=== PATIENT | female | born 1980 | race Caucasian/White ===

== ENCOUNTER 2025-10-06 07:12 | Emergency (ER) | payer MEDICAID, SELFPAY ==
--- OUTSIDE RECORDS SUMMARY | 2025-07-08 09:45 | XMS_ITS ---
Author Organization [facility] Address [address] [place] [address] Care Team Providers Care Carpenter Supervisor Name Role Phone Cristy Tellez Unavailable [phone] REASON FOR VISIT PrEP F/U Social History Sex Assigned At : Social History Observation Description Sex Assigned At Male Encounters Encounter Location Date Provider Diagnosis [facility] [address] [place], [place] [phone] 07/08/2025 Cristy Tellez Plan Of Treatment No Information Progress Notes * Flavio BAXTERDOB: [birth year] (45 yo M)Acc No.[id number]:07/08/2025 Progress Notes Patient: Flavio Ramos Provider: Lora Tellez CNM :1980 A ge:45 Y S ex:Male(T) Date:07/08/2025 Address: [address], [id number] Subjective: * Chief Complaints: * P rEP F/U * Electronic signature of Sylvie Tellez CNM on 10/06/2025 at 08:42 AM EST Sign off status: Pending * Provider: Lora Tellez CNM Date: 0 07/08/2025 Generated for Printi ng/Faxing/eTransmitting on: 1 12/06/2024 08:42 AM EST
[2025-10-06 07:18] VITALS: BP 140/87; PULSE 93; RESP 18; TEMP 36.6; O2SAT 100; BMI 25.6
--- NOTE | 2025-10-06 08:17 | PC.NURSE ---
spoke with this patient about getting changed over in the green attire, pt is here mostly for detox from meth is calm, denies si/hi. pt is stating that she does not want to stay in the ED that she already had a placement for detox but her truck broke down on the way over so she came to [facility] instead. Dr Powell is also speaking with the pt-still is continuing on not wanting to come to a room at this time, pt still is continuing to denies si/hi
--- NOTE | 2025-10-06 08:19 | ED_ITS ---
HPI - Psych General Chief Complaint: ETOH/Substance Use Stated Complaint: detox Time Seen by Provider: 10/06/25 08:18 Source: patient and old records reviewed Mode of arrival: ambulatory Limitations: no limitations History of Present Illness ED Provider: JAYLEEN HPI Narrative: 45-year-old female who presents with wanting detox from methamphetamine abuse. She denies SI HI she notes she is using 2-3 she is very depressed. I did attempt with the charge nurse to try to get her to come in so we could assist her but she repeatedly states she is trying to get to detox on her own. She denies suicidal ideation homicidal ideation MD complaint: feels depressed and substance abuse Onset (ago): month(s) Duration: getting worse History of same: Yes Relieving factors: none Exacerbating factors: drug use Associated psychiatric symptoms: depression Associated symptoms: denies other symptoms Treatments prior to arrival: none Related Data Allergies Allergy/AdvReac Type Severity Reaction Status Date / Time No Known Allergies Allergy Verified 10/06/25 07:21 Review of Systems Review of Systems: Yes all other systems are reviewed and are negative [facility] Past Medical History Attestation statement: The following information was validated with the patient. Medical History Methamphetamine abuse Social History Social History (Updated 10/06/25 @ 08:29 by Valencia Powell DO) Patient Tobacco Use Status: Tobacco use Unknown Substance Use Type: Methamphetamine Physical Exam Vital Signs: Vital Signs: Last Vital Signs Temp 98 F 10/06/25 07:18 Pulse 93 10/06/25 07:18 Resp 18 10/06/25 07:18 BP 140/87 H 10/06/25 07:18 Pulse Ox 100 10/06/25 07:18 O2 Del Method Room Air 10/06/25 07:18 BMI result Body Mass Index 25.6 Appearance: Alert. Oriented X3. No acute distress. Outside sitting on a bench talking on the phone asking for time and states they are unsure what they want to do Eyes: Pupils equal, round and reactive to light. ENT: Pharynx normal. Neck: Normal inspection. Neck supple. CVS: Extremities are warm and well perfused Respiratory: No respiratory distress. Abdomen: not assessed Skin: Skin warm and dry. Normal skin color. Extremities: Moves all extremities equally Neuro: Oriented X 3. No motor deficit. No sensory deficit. Medical Decision Making Medical Decision Making MDM Narrative: 45-year-old female with past medical history of methamphetamine abuse who is very limited in giving history she will only talks to me outside on a bench. But she does deny SI HI I did try to get her to come in to help with addiction but she refuses states she is going to do it from home. At this time she can be discharged from our facility Differential Diagnosis Differential Diagnoses: The differential diagnosis associated with the presentation includes Methamphetamine abuse Admission/Observation Consideration of admission/observation: Escalation of care including admission/observation considered She refuses care at this time I do not feel I can section her given lack of SI or HI External Record Review External record reviewed: Outpatient record Social Determinants Patient?s care significantly limited by Social Determinants of Health including: Problems related to primary support group Discharge Plan Discharge Clinical Impression: Methamphetamine abuse Patient Disposition: Home, Self-Care Instructions: Methamphetamine Use Disorder (ED) Additional Instructions: If you decide you want to stop or cut down on how much you?re using, you can call or walk into our outpatient Addiction Treatment office: [facility] (M-F 9am-5p) [address] [place] [address], [phone] You were also provided a list of several treatment providers in the area.? If you experience any worsening symptoms you cannot control please return to the ED or call 911. Please follow up at your next appointment. Things to look out for are fevers, chest pain, shortness of breath, severe pain, dizziness, fainting or any other concerns. Discharge Date/Time: 10/06/25 08:30 Print Language: Estonian
--- OUTSIDE RECORDS SUMMARY | 2025-10-06 08:43 | XMS_ITS | Patient Health Record ---
Author Organization [facility] Address [address] [place] [address] Care Team Providers Care Processing Clerk Name Role Phone REED OSUNA Unavailable [phone] Dali Tellez Unavailable [phone] Cristy Tellez Unavailable [phone] Allergies Allergen (clinical drug ingredient) Drug/Non Drug Allergy documented on EMR Reaction Allergy Type Onset Date Status Substance with cannabinoid receptor agonist mechanism of action (substance) THC Oil (uncoded) Unknown Allergy Acti ve Results Component Value Reference Range Flag Notes HCV Antibody-[id number] Reviewed date:08/14/2025 03:00:46 PM Interpretation:Non-reactive Performing Lab:[address], [address], [employer], Phone - [phone], Director - [facility] Notes/Report: Clinical Information:SRC:urine Hep C Virus Ab Non Reactive Non Reactive HCV antibody results should be followed up with an HCV RNA test HCV antibody alone does not differentiate between previously resolved infection and active infection. Equivocal and Reactive to support the diagnosis of active HCV infection. Ct/GC CAMI, Pharyngeal-[id number] Reviewed date:09/04/2025 05:27:18 PM Interpretation: Performing Lab:[address], [address], [employer], Phone - [phone], Director - [facility] Notes/Report: Clinical Information:SRC:urine C. trachomatis, CAMI, Pharyn Negative Negative N. gonorrhoeae, CAMI, Pharyn Negative Negative Ct/GC [facility]I, Rectal-[id number] Reviewed date:09/04/2025 05:27:17 PM Interpretation: Performing Lab:[facility] [place], [address], [address], [place], Phone - [phone], Director - [facility] Notes/Report: Clinical Information:SRC:urine C. trachomatis, CAMI, Rectal Negative Negative N. gonorrhoeae, CAMI, Rectal Negative Negative Ct, Ng, Trich vag by CAMI-[id number] Reviewed date:09/04/2025 05:27:17 PM Interpretation: Performing Lab:[facility], [address], [address], [place], Phone - [phone], Director - [facility] Notes/Report: Clinical Information:SRC:urine Chlamydia by CAMI Negative Negative Gonococcus by CAMI Negative Negative Trich vag by CAMI Negative Negative HIV Ab/p24 Ag with Reflex-[id number] Reviewed date:08/14/2025 03:00:46 PM Interpretation:Non-reactive Performing Lab:[facility], [address], [address], [place], Phone - [phone], Director - [facility] Notes/Report: Clinical Information:SRC:urine HIV Ab/p24 Ag Screen Non Reactive Non Reactive There is no laboratory evidence of HIV infection. HIV-1/HIV-2 antibodies and HIV-1 p24 antigen were NOT detected. HIV Negative T pallidum Screening [place] -[id number] Reviewed date:08/14/2025 03:00:45 PM Interpretation:Non-reactive Performing Lab:[facility], [address], [address], [place], Phone - [phone], Director - [facility] Notes/Report: Clinical Information:SRC:urine Clinical Information:SRC:urine Clinical Information:SRC:urine T pallidum Antibodies Reactive Non Reactive A RPR Non Reactive Non Reactive Treponemal Antibodies, TPPA Reactive Non Reactive A Interpretation: syphilis. with past or current Non N/A N/A No laboratory evidence Treponemal Treponemal nontreponemal syphilis; potential 2-4 weeks if recent Inconclusive for -------- Reactive Reactive not confirmed. Ab RPR, Qn Ab, TPPA Final Interpretation Reactive detected. Consistent Reactive Non Non Treponemal antibodies exposure is suspected. Consistent with current exposure is suspected. weeks if recent antibodies detected. positive. Retest in 2-4 early syphilis, Reactive Non Reactive Treponemal antibodies -------- ------ Reactive >/=1:1 N/A Treponemal and Titer, Reverse Screening and Diagnosis Algorithm possible false or past syphilis. -------- Syphilis: Treponemal Antibodies with Reflex to RPR and RPR -------- Reactive of syphilis. Retest in (potential early) HCV Antibody-[id number] Reviewed date:04/09/2025 04:05:33 PM Interpretation:Non-reactive Performing Lab:[facility], [address], [address], [place], Phone - [phone], Director - [facility] Notes/Report: Hep C Virus Ab Non Reactive Non Reactive resolved infection and active infection. Equivocal and Reactive HCV antibody alone does not differentiate between previously to support the diagnosis of active HCV infection. HCV antibody results should be followed up with an HCV RNA test Ct/GC CAMI, Pharyngeal-[id number] Reviewed date:04/09/2025 04:05:12 PM Interpretation:Negative Performing Lab:[facility], [address], [address], [employer], Phone - [phone], Director - [facility] Notes/Report: C. trachomatis, CAMI, Pharyn Negative Negative N. gonorrhoeae, CAMI, Pharyn Negative Negative Ct/GC CAMI, Rectal-[id number] Reviewed date:04/09/2025 04:05:21 PM Interpretation:Negative Performing Lab:[facility], [address], [address], [place], Phone - [phone], [facility] Notes/Report: C. trachomatis, CAMI, Rectal Negative Negative N. gonorrhoeae, CAMI, Rectal Negative Negative Chlamydia/GC Amplification-[id number] Reviewed date:04/10/2025 09:15:02 AM Interpretation:Negative Performing Lab:[facility], [address], [address], [place], Phone - [phone], [facility] Notes/Report: Chlamydia trachomatis, CAMI Negative Negative Neisseria gonorrhoeae, CAMI Negative Negative HIV Ab/p24 Ag with Reflex-[id number] Reviewed date:04/09/2025 04:05:44 PM Interpretation:Non-reactive Performing Lab:[facility], [address], [address], [place], Phone - [phone], [facility] Notes/Report: HIV Ab/p24 Ag Screen Non Reactive Non Reactive HIV-1/HIV-2 antibodies and HIV-1 p24 antigen were NOT detected. HIV Negative There is no laboratory evidence of HIV infection. T pallidum Screening [place] -[id number] Reviewed date:04/10/2025 10:17:07 AM Interpretation:Reactive Performing Lab:[facility], [address], [address], [place], Phone - [phone], [facility] Notes/Report: T pallidum Antibodies Reactive Non Reactive A RPR Non Reactive Non Reactive Treponemal Antibodies, TPPA Reactive Non Reactive A Interpretation: Reactive Non Non Treponemal antibodies (potential early) syphilis. possible false exposure is suspected. ------ Consistent with current or past syphilis. -------- Reactive >/=1:1 N/A Treponemal and weeks if recent -------- -------- Ab RPR, Qn Ab, TPPA Final Interpretation Titer, Reverse Screening and Diagnosis Algorithm antibodies detected. Non N/A N/A No laboratory evidence Inconclusive for Reactive of syphilis. Retest in -------- Syphilis: Treponemal Antibodies with Reflex to RPR and RPR Reactive Reactive not confirmed. Reactive Non Reactive Treponemal antibodies exposure is suspected. Treponemal Treponemal Reactive detected. Consistent 2-4 weeks if recent positive. Retest in 2-4 nontreponemal early syphilis, syphilis; potential with past or current Creatinine-[id number] Reviewed date:04/11/2025 01:19:17 PM Interpretation:Normal Performing Lab:[facility], [address] [facility], Phone - [phone], Director - [facility] Notes/Report: Creatinine 1.46 0.76-1.27 mg/dL H eGFR 61 >59 mL/min/1.73 Reason For Referral No Information Medications Medication SIG (Take, Route, Frequency, Duration) Notes Start Date End Date Status Bicillin L-A [id number] UNIT/4ML Suspension Prefilled Syringe as directed Intramuscular Stat dose #1 Rx at [facility] on 05/12/2025 05/12/2025 Not-Taking/P RN Truvada 200-300 MG Tablet 1 tablet Orally Once a day; Duration: 90 days Active Bicillin L-A [id number] UNIT/4ML Suspension Prefilled Syringe as directed Intramuscular Rx at [facility] on 05/19/2025 ,#2 Not-Taking/P RN Doxycycline Monohydrate 100 MG Capsule 2 capsules Orally Stat within 72 hours of UP sex; Duration: 1 days Rx from [facility] on 09/30/2024 to start as Doxy -Pep ,2 tabs po stat within 72 hours of UPI 09/30/2024 Active Emtricitabine-Tenofo vir DF 200-300 MG Tablet TAKE 1 TABLET BY MOUTH DAILY; Duration: 30 Not-Taking/P RN Bicillin L-A [id number] UNIT/4ML Suspension Prefilled Syringe as directed Intramuscular Not-Taking/P RN cefTRIAXone Sodium 500 MG Solution Reconstituted as directed Injection Once; Duration: 1 days Rx given on 12/08/2023 12/08/2023 Not-Taking/P RN Doxycycline Monohydrate 100 MG Capsule 1 capsule Orally Twice a day; Duration: 7 days 01/08/2024 Not-Taking/P RN Truvada 200-300 MG Tablet 1 tablet Orally Once a day; Duration: 30 days Not-Taking/P RN Doxycycline Hyclate 100 MG Tablet 1 tablet Orally Twice daily; Duration: 7 days Rx given on 12/08/2023 12/08/2023 Not-Taking/P RN Bicillin L-A [id number] UNIT/4ML Suspension Prefilled Syringe as directed Intramuscular Not-Taking/P RN cefTRIAXone Sodium 500 MG Solution Reconstituted as directed Injection Once; Duration: 1 days Not-Taking/P RN Social History Sex Assigned At : Social History Observation Description Sex Assigned At Male Social History HIV Risk Assessment Social Info Question Answer Notes Additional Questions Is an HIV Risk Assessment being c onducted? Yes Have you been tested for HIV before? Yes Do you have an unlicensed body piercing or tattoo? No Reproductive Life Plan: Social Info Question Answer Notes Reproductive Life Plan: Do you want to h ave children? No Human Trafficking: Social Info Question Answer Notes Human Trafficking Experienced: No PrEP for HIV: Social Info Question Answer Notes PrEP for HIV Is the client jostin dinerokaylee in beginning/continuing PrEP for HIV? Yes Sexual History: Social Info Question Answer Notes Sexual History: Sexual History Reviewed: Partner s, Practices, Protection/Past STIs, Prevention of , ___ Currently sexually active? Yes Sexually active with: Men Your sexual activities include: anal intercourse, oral intercourse, vaginal intercourse Reviewed types of EC? No Do you use condoms? Yes Condoms are used: occasionally Date of last unprotected intercourse: 07/28/2025 Number of partners in past 3 months: 8 Number of partners in past year: 20 Does your partner(s) currently have any STIs? No Completed Gardasil vaccination series? Yes Counseling Provided: Social Info Question Answer Notes Counseling Provided The client was couns eled on the following topics at this visit: STIs, PrEP for HIV Please indicate the length o f time, in minutes, that counseling was provided. 5 Counseling Was Provided By: silvia Drugs/Alcohol: Social Info Question Answer Notes Drug/Alcohol Use Do you or have you used drugs? Yes, c urrently By what route are you taking drugs? Please check all that apply: Smoking Which drug(s) do you smoke? Marijuana Do you or have you used alcohol? Yes, currently rarely Food Access: Social Info Question Answer Notes Food Access The Client's current access to food is Insecure Access to food applying to DTA Relationships: Social Info Question Answer Notes Relationships Has the client experienced any of the following: Client has never experienced harmful relationships DO NOT USE - Travel Plans: Social Info Question Answer Notes Travel Plans DO NOT USE - Has client traveled to any [place] affected areas? No Housing Social Info Question Answer Notes Housing The client's current living situation is: homeless emailed housing referral list Tobacco Use: Social Info Question Answer Notes Tobacco Use: Tobacco Smoking Status Current every day smoker Vital Signs Blood pressure diastolic 76 mm Hg 05/19/2025 Height 20 in 05/19/2025 Blood pressure systolic 110 mm Hg 05/19/2025 Weight 5 lbs 05/19/2025 BMI 8.79 kg/m2 05/19/2025 Encounters Encounter Location Date Provider Diagnosis [address] [id number] 11/11/2024 REDE OSUNA Encounter for screen ing for human immunodeficiency virus [HIV] Z11.4 ; Encounter for HIV pre-exposure prophylaxis Z29.81 ; Encounter for screening for infections with a predominantly sexual mode of transmission Z11.3 and Other problems related to lifestyle Z72.[address] [id number] 04/07/2025 REED OSUNA Encounter for screen ing for human immunodeficiency virus [HIV] Z11.4 ; Encounter for HIV pre-exposure prophylaxis Z29.81 ; Encounter for screening for infections with a predominantly sexual mode of transmission Z11.3 and Other problems related to lifestyle Z72.[address] [place] [id number] 04/22/2025 REED OSUNA [facility] [address], [place] [id number] 05/12/2025 REEDFELISA OSUNA Syphilis, unspecifie d A53.9 and Counseling, unspecified Z71.9 [facility] [address], [place] [id number] 05/19/2025 REED OSUNA Syphilis, unspecifie d A53.9 and Counseling, unspecified Z71.9 [facility] [address] [place] [id number] 05/27/2025 Cristyalessandro Degrooters Syphilis, unspecified A53.9 and Counseling, unspecified Z71.[address] [id number] 08/01/2025 Cristy Tellez Encounter for screening for human immunodeficiency virus [HIV] Z11.4 ; Encounter for HIV pre-exposure prophylaxis Z29.81 ; Encounter for screening for infections with a predominantly sexual mode of transmission Z11.3 ; Other problems related to lifestyle Z72.89 and Encounter for screening for other viral diseases Z11.[address] [id number] 08/13/2025 Cristy Tellez [employer] [id number] 11/26/2024 [facility]ED OSUNA [facility] [address] [place] [id number] 04/01/2025 Dali Tellez Encounter for HIV pre-exposure prophylaxis Z29.81 [facility] [address] [place] [id number] 04/02/2025 REED OSUNA [facility] [employer] [address] [place] [id number] 04/09/2025 REED OSUNA Encounter for HIV pre-exposure prophylaxis Z29.[address] [id number] 04/10/2025 REED OSUNA Encounter for HIV pre-exposure prophylaxis Z29.81 ; Encounter for screening for infections with a predominantly sexual mode of transmission Z11.3 ; Encounter for screening for other viral diseases Z11.59 ; HIV Screening Z11.4 and Contact with or exposure to STI Z20.[address] [id number] 04/23/2025 REED OSNUA Screening for other viral diseases Z11.59 and Contact with or exposure to STI Z20.[address] [id number] 05/06/2025 [facility]ED OSUNA [facility] [address] [place] [address] [id number] 05/22/2025 [facility] [address] [place] [address] [id number] 09/01/2025 Dali Tellez Encounter for HIV pre-exposure prophylaxis Z29.[address] [id number] 09/24/2025 Cristy Tellez Encounter for HIV pre-exposure prophylaxis Z29.[address] [id number] 08/01/2025 Cristy Tellez Encounter for HIV pre-exposure prophylaxis Z29.81 Assessments Encounter Date Diagnosis (ICD Code) Assessment Notes Treatment Notes Treatment Clinical Notes Section Notes 11/11/2024 Encounter for screening for human immunodeficiency virus [HIV] (ICD-10 - Z11.4) 04/01/2025 Encounter for HIV pre-exposure prophylaxis (ICD-10 - Z29.81) 04/09/2025 Encounter for HIV pre-exposure prophylaxis (ICD-10 - Z29.81) 04/07/2025 Encounter for screening for human immunodeficiency virus [HIV] (ICD-10 - Z11.4) 04/10/2025 Encounter for HIV pre-exposure prophylaxis (ICD-10 - Z29.81) 04/23/2025 Screening for other viral diseases (ICD-10 - Z11.59) 05/12/2025 Syphilis, unspecified (ICD-10 - A53.9) Discussed etiology, transmission, and treatment of syphilis. Patient was treated today with Bicillin L-A, 2.4 million units IM (gluteal). No concerns for allergic response. 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 Advised Tylenol or Ibuprofen as needed. Barrier method or abstinence recommended x 7 days post treatment. Reviewed follow up plan. Recommended 100% barrier method for prevention of future STIs. Plan of care reviewed with [facility] peer counselor. Picture Framer to coordinate care for any partners. [facility] form submitted. Rx Bicillin L-A2400,given in L and R Buttock ,# [id number],exp.06/2027 Urged to abstain from SA x 1 week and F/U x 1 week for #2 injection Counseled re self care Also urged to seek care for leg evaluation at ER /Urgent Care Client agrees to plan Visit documented . 05/19/2025 Syphilis, unspecified (ICD-10 - A53.9) Discussed etiology, transmission, and treatment of syphilis. Patient was treated today with Bicillin L-A, 2.4 million units IM (gluteal). No concerns for allergic response. 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 Advised Tylenol or Ibuprofen as needed. Barrier method or abstinence recommended x 7 days post treatment. Reviewed follow up plan. Recommended 100% barrier method for prevention of future STIs. Plan of care reviewed with [facility] peer counselor. Picture Framer to coordinate care for any partners. [facility] form submitted. Rx Bicillin L-A 2400 Im injections given in L /R Gluteus with care ,client tolerated well # [id number],exp.06/2027 Urged to abstain from SA with Rx States has informed recent partners for testing Urged 100% safer sex in future Visit documented . 05/27/2025 Syphilis, unspecified (ICD-10 - A53.9) Discussed etiology, transmission, and treatment of syphilis. Patient was treated today with Bicillin L-A, 2.4 million units IM (gluteal). No concerns for allergic response. 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 Advised Tylenol or Ibuprofen as needed. Barrier method or abstinence recommended x 7 days post treatment. Reviewed follow up plan. Recommended 100% barrier method for prevention of future STIs. Plan of care reviewed with [facility] peer counselor. Picture Framer to coordinate care for any partners. [facility] form submitted. Spent 10 minutes doing the following: Chart Prep Obtaining/ reviewing history Counseling /Coordinat ion of Care Documentin g the visit Educating the patient Ordering medication /test/proc edures Establishe d Patient: [id number] 10 Minutes 08/01/2025 Encounter for screening for human immunodeficiency virus [HIV] (ICD-10 - Z11.4) Spent 10 minutes doing the following: Chart Prep Obtaining/ reviewing history Counseling /Coordinat ion of Care Documentin g the visit Educating the patient Ordering medication /test/proc edures Establishe d Patient: [id number] 10 Minutes 08/01/2025 Encounter for HIV pre-exposure prophylaxis (ICD-10 - Z29.81) 09/01/2025 Encounter for HIV pre-exposure prophylaxis (ICD-10 - Z29.81) 09/24/2025 Encounter for HIV pre-exposure prophylaxis (ICD-10 - Z29.81) 08/01/2025 Encounter for HIV pre-exposure prophylaxis (ICD-10 - Z29.81) Pending lab results clt continues to be a good candidate for PrEP use as a part of a comprehensive HIV prevention strategy plan in conjunction with condom use and risk mitigation. We discussed PrEP alternative modalities including 211 on demand and injectable PrEP. At this time clt wishes to continue on daily oral. Emphasized importance of compliance to reduce risk of resistance, avoid high dose or terminal manager use of NSAIDS and to consider calcium and vitamin D supplementation for bone health. Advised to contact the office with any signs/symptoms of lactic acidosis, liver problems, or acute HIV. Reviewed Doxy-PEP, benefits and risks. Can potentially reduce the risk for acquiring CT, GC and syphilis by about 60%. Reviewed how to take it. 2 pills ideally within 24 hours but can be taken up to 72 hours after unprotected sex. Clt to sit up for 30 min after taking, have food prior and plenty of water. No calcium products within 2 hours of taking doxy. No more than 1 dose per 24 hours. Clt aware of the unknowns that are being monitored with Doxy-PEP: effect to microbiome and drug resistance concerns. PrEP Rx refill to be filled pending lab results. Clt aware. All questions and concerns addressed. RTC in 3 months for PrEP labs anf f/u, or sooner prn. Spent 10 minutes doing the following: Chart Prep Obtaining/ reviewing history Counseling /Coordinat ion of Care Documentin g the visit Educating the patient Ordering medication /test/proc edures Establishe d Patient: [id number] 10 Minutes 05/27/2025 Counseling, unspecified (ICD-10 - Z71.9) Spent 10 minutes doing the following: Chart Prep Obtaining/ reviewing history Counseling /Coordinat ion of Care Documentin g the visit Educating the patient Ordering medication /test/proc edures Establishe d Patient: [id number] 10 Minutes 08/01/2025 Encounter for screening for infections with a predominantly sexual mode of transmission (ICD-10 - Z11.3) Spent 10 minutes doing the following: Chart Prep Obtaining/ reviewing history Counseling /Coordinat ion of Care Documentin g the visit Educating the patient Ordering medication /test/proc edures Establishe d Patient: [id number] 10 Minutes 05/19/2025 Counseling, unspecified (ICD-10 - Z71.9) 05/12/2025 Counseling, unspecified (ICD-10 - Z71.9) 04/23/2025 Contact with or exposure to STI (ICD-10 - Z20.2) 04/07/2025 Encounter for HIV pre-exposure prophylaxis (ICD-10 - Z29.81) Spent 20 minutes doing the following : Chart Prep Obtaining /reviewing HPI Reviewed all STI testing ,completed On Rx PrEP now ,self pay ,will fill application for PrEP DAP Sent eRx to continue as above Has Rx Doxy Pep to use prn Urged 100% safer sex /condoms F/U x 3 mos Visit documented . 04/10/2025 Encounter for screening for infections with a predominantly sexual mode of transmission (ICD-10 - Z11.3) 11/11/2024 Encounter for HIV pre-exposure prophylaxis (ICD-10 - Z29.81) Sp[ent 10 minutes doing the following : Chart Prep Obtaining /reviewing HPI Client without sxs Last SA 2 weeks ago Agrees to abstain until all labs done Will RTC for aptimas x 3 and BW x 3 in 1 week OK to contuinue with Rx PrEP Sent eRx to continue Urged 100% safer sex /condoms Visit documented . 11/11/2024 Encounter for screening for infections with a predominantly sexual mode of transmission (ICD-10 - Z11.3) 04/07/2025 Encounter for screening for infections with a predominantly sexual mode of transmission (ICD-10 - Z11.3) 04/10/2025 Encounter for screening for other viral diseases (ICD-10 - Z11.59) 08/01/2025 Other problems related to lifestyle (ICD-10 - Z72.89) Spent 10 minutes doing the following: Chart Prep Obtaining/ reviewing history Counseling /Coordinat ion of Care Documentin g the visit Educating the patient Ordering medication /test/proc edures Establishe d Patient: [id number] 10 Minutes 04/10/2025 HIV Screening (ICD-10 - Z11.4) 04/07/2025 Other problems related to lifestyle (ICD-10 - Z72.89) 11/11/2024 Other problems related to lifestyle (ICD-10 - Z72.89) 04/10/2025 Contact with or exposure to STI (ICD-10 - Z20.2) 08/01/2025 Encounter for screening for other viral diseases (ICD-10 - Z11.59) Spent 10 minutes doing the following: Chart Prep Obtaining/ reviewing history Counseling /Coordinat ion of Care Documentin g the visit Educating the patient Ordering medication /test/proc edures Establishe d Patient: [id number] 10 Minutes Plan Of Treatment Pending Test Test Name Order Date [facility] - Hepatitis C antibody 025 [facility] - HIV Confirmatory/[facility] - Syphilis Testing 04/23/2025 Insurance Providers Payer Name Payer Address Payer Phone Subscriber Number Group Number Insured Name Patient Relationship to Insured Coverage Start Date Coverage End Date [employer] [address] [place] [address] [id number] Flavio Nichols Self - patient is the insured Medications Administered Medication Instructions Date of Administration Dosage Notes Bicillin 05/12/2025 2400 mg Bicillin 05/12/2025 2400 mg Bicillin 05/19/2025 2400 mg Bicillin 05/19/2025 2400 mg Bicillin 05/27/2025 Lidocaine 1% 09/16/2022 1.0 mL Lidocaine 1% 01/26/2023 1.0 mL Rocephin / Ceftriaxone 08/12/2022 500 mg Rocephin / Ceftriaxone 09/16/2022 500 mg Rocephin / Ceftriaxone 01/26/2023 500 mg Rocephin / Ceftriaxone 09/08/2023 500 mg DANNY HARRISON 09/08 03:45:43 PM > reconstituted with 1% lidocaine Rocephin/Ceftriaxone 12/08/2023 500 mg Medical (General) History Medical History History ICD Code GC and Chlam 08/18 ,dx'd and tx'd at [facility] ,had requested retest for 'everything ' at [facility] visit of 09/13/2022,+ GC /anal at that [facility] visit ,tx'd and F/U on 10/24/2022 GC 09/2022 Dx and Tx here at [facility] oral 12/2022 Dx and Tx as above,rescreen at [facility] 02/06/2023 was negative ,post Tx GC and CT positive 08/2023 ,tx'd on 08/27 fr both [facility] positive 04/2025, Tx at (05/12) Surgical History Surgery Date(Month/Year) Hospitalization History Reason Date(Month/Year) 2-3 weeks ago - broken arm and infection
[2025-10-06 09:08] VITALS: BP 140/87; PULSE 93; RESP 18; TEMP 36.6; O2SAT 100
== END 2025-10-06 08:30 | disposition home or self-care (01) ==
LOC: HO.ED 08:20
PROVIDERS: Emergency Provider Emergency Medicine
DX: F15.10 Other stimulant abuse, uncomplicated (principal)
CPT/HCPCS: 99282